=== PATIENT | male | born 1950 | race Caucasian/White ===

== ENCOUNTER 2018-05-27 18:39 | Emergency (ER) | payer MEDICARE ==
[2018-05-27 18:47] VITALS: TEMP 96.8
[2018-05-27] MEDS ORDERED: SODIUM CHLORIDE 0.9% 1,000 ML IV ONE (18:58)
--- NOTE | 2018-05-27 19:00 | ED ---
Syncope HPI - General Chief Complaint: Syncope Stated Complaint: Syncope Time Seen by Provider: 05/27/18 18:50 Source: patient, EMS Mode of arrival: EMS Limitations: no limitations - History of Present Illness Initial Comments: 67-year-old male presenting with multiple syncopal events. He states he was [place] drinking [place]day and was not hydrating when he had 3 episodes of syncope. He stated prior to passing out he would leg heaviness but denies any chest pain or shortness or breath. He states he is currently asymptomatic. He states he "hits his head all the time". He is not on blood thinners. He denies daily ETOH use or withdraw seizures. He is unable to quantify how many drinks he had today. Denies history of PE/DVT. - Related Data Previous Rx's Medication Instructions Recorded Nitroglycerin Sl Tabs [Nitrostat] 0.4 mg SUBLINGUAL Q5M PRN #25 tab 10/24/14 Allergies Allergy/AdvReac Type Severity Reaction Status Date / Time No Known Allergies Allergy Verified 05/27/18 18:41 Review of Systems ROS Statement: Those systems with pertinent positive or pertinent negative responses have been documented in the HPI. Review of Systems Constitutional: Denies fever, chills Eyes: Denies change in vision, Denies pain Ears, nose, mouth, throat: Denies headaches, Denies sore throat Cardiovascular: Denies chest pain. Denies palpitations Respiratory: Denies shortness of breath, Denies cough Gastrointestinal: Denies abdominal pain. Denies nausea, vomiting, diarrhea. Genitourinary: Denies hematuria, Denies infections Musculoskeletal: Denies pain, Denies swelling Integumentary: Denies rash Neurological: Denies headache, focal weakness, focal numbness. positive syncope. Psychiatric: Denies anxiety, Denies depression Hematologic/Lymphatic: Denies easy bleeding or bruising ROS Other: All systems not noted in ROS Statement are negative. Past Medical History Additional Past Medical History / Comment(s): atrial septal defect closure device History of Any Multi-Drug Resistant Organisms: None Reported Past Surgical History: Hernia Repair, Orthopedic Surgery Past Psychological History: No Psychological Hx Reported Smoking Status: Current every day smoker Past Alcohol Use History: Daily Past Drug Use History: None Reported General Exam - General Exam Comments Initial Comments: General: Awake, alert, No acute Distress HENT: Normocephalic. Atraumatic Eyes: PERRL. EOMI. No scleral icterus. No injected conjunctiva Neck: Full ROM Chest/Lungs: Clear to auscultation bilaterally. No wheezing, rhonchi, or rales Cardiac: Regular rate, rhythm. No murmurs or rubs. 2+ radial pulses bilaterally Abdomen/GI: [Soft, nontender, nondistended. No rebound, guarding, or rigidity. No abdominal bruit. Musculoskeletal: Full ROM Skin: Warm, dry, intact Neurologic: A/Ox3, no weakness, no sensory deficit, no abnormal gait, no coordination deficit. Finger to nose intact bilaterally. Psych: Agitated. Intoxicated. Limitations: no limitations Course Vital Signs 05/27/18 05/27/18 05/27/18 18:41 19:06 19:08 Temperature 96.8 F L Pulse Rate 85 75 Pulse Rate [ 74 [employer] ] Respiratory 20 18 Rate Blood Pressure 110/58 110/58 O2 Sat by Pulse 93 L 95 Oximetry 05/27/18 19:37 Temperature Pulse Rate 70 Pulse Rate [ [employer] ] Respiratory 16 Rate Blood Pressure 140/77 O2 Sat by Pulse 98 Oximetry EKG Findings - EKG Comments: EKG Findings:: EKG shows normal sinus rhythm at a rate of 83 bpm with left ventricular hypertrophy. IA interval is 184, QRS is 94, QT/QTC 388/455. LVH is new when compared to previous EKG. Medical Decision Making - Medical Decision Making 67-year-old male presenting with syncope. Initial exam the patient is awake, alert, no acute distress. VSS. EKG shows normal sinus rhythm at a rate of 83 bpm. On presentation the patient is asymptomatic. His laboratory workup is negative for acute process. CT head shows an old infarct is otherwise negative as well as his CT cervical spine. Discussed with the patient admission versus discharge. He is able to make his own decisions. He declined admission for syncopal workup when offered. He was told that he could suffer worsening condition or . He verbalized understanding. Patient was along the family at bedside states that they will have him stay at their house tonight. Patient is low risk per the [place] Syncope rule. [place] Syncope risk score is - 1, making him low risk. The patient denies any shortness of breath, chest pain, recent surgery, or active cancer. Low suspicion of PE. The patient has equal pulses, no abdominal pain or bruit, stable BP, hemoglobin WNL, no neurologic deficit, and a normal troponin. Low suspicion of AAA or dissection. No further emergent workup indicated. The patient was given return to ED instructions. They were instructed to follow up with their primary care provider. Stable for discharge at this time. - Lab Data Result diagrams: 05/27/18 18:51 18 18:51 Lab Results 05/27/18 05/27/18 05/27/18 Range/Units 18:51 18:51 18:51 WBC 8.4 (3.8-10.6) k/uL RBC 4.43 (4.30-5.90) m/uL Hgb 13.6 (13.0-17.5) gm/dL Hct 42.3 (39.0-53.0) % MCV 95.6 (80.0-100.0) fL MCH 30.6 (25.0-35.0) pg MCHC 32.0 (31.0-37.0) g/dL RDW 12.6 (11.5-15.5) % Plt Count 240 (150-450) k/uL Neutrophils % 63 % Lymphocytes % 28 % Monocytes % 5 % Eosinophils % 2 % Basophils % 0 % Neutrophils # 5.3 (1.3-7.7) k/uL Lymphocytes # 2.4 (1.0-4.8) k/uL Monocytes # 0.5 (0-1.0) k/uL Eosinophils # 0.1 (0-0.7) k/uL Basophils # 0.0 (0-0.2) k/uL Sodium 139 (137-145) mmol/L Potassium 3.7 (3.5-5.1) mmol/L Chloride 109 H (98-107) mmol/L Carbon Dioxide 20 L (22-30) mmol/L Anion Gap 10 mmol/L BUN 20 (9-20) mg/dL Creatinine 1.13 (0.66-1.25) mg/dL Est GFR (CKD-EPI)AfAm 77 (>60 ml/min/1.73 sqM) Est GFR (CKD-EPI)NonAf 66 (>60 ml/min/1.73 sqM) Glucose 105 H (74-99) mg/dL Calcium 8.4 (8.4-10.2) mg/dL Magnesium 1.9 (1.6-2.3) mg/dL Troponin I <0.012 (0.000-0.034) ng/mL Serum Alcohol <10 mg/dL Disposition Clinical Impression: Syncope Disposition: HOME SELF-CARE Condition: Good Instructions: Heat Exhaustion (ED), Syncope (ED) Is patient prescribed a controlled substance at d/c from ED?: No Referrals: None,Stated [Primary Care Provider] - 1-2 days Griffin Schofield MD [STAFF PHYSICIAN] - 1-2 days
[2018-05-27 19:27] LABS: Basophils % (A) 0 %; Eosinophils # (A) 0.1 k/uL (0-0.7); Eosinophils % (A) 2 %; HCT 42.3 % (39.0-53.0); HGB 13.6 gm/dL (13.0-17.5); Lymphocytes # (A) 2.4 k/uL (1.0-4.8); Lymphocytes % (A) 28 %; MCH 30.6 pg (25.0-35.0); MCV 95.6 fL (80.0-100.0); Mean Platelet Volume 6.5; Monocytes # (A) 0.5 k/uL (0-1.0); Monocytes % (A) 5 %; Neutrophils # (A) 5.3 k/uL (1.3-7.7); Neutrophils % (A) 63 %; Platelet Count 240 k/uL (150-450); RBC 4.43 m/uL (4.30-5.90); RDW 12.6 % (11.5-15.5); WBC 8.4 k/uL (3.8-10.6)
[2018-05-27 19:36] LABS: Alcohol <10 mg/dL; Anion Gap 10 mmol/L; Blood Urea Nitrogen 20 mg/dL (9-20); Calcium 8.4 mg/dL (8.4-10.2); Carbon Dioxide 20 mmol/L (22-30); Chloride 109 mmol/L (98-107); Glucose 105 mg/dL (74-99); Magnesium 1.9 mg/dL (1.6-2.3); Potassium 3.7 mmol/L (3.5-5.1); Sodium 139 mmol/L (137-145)
[2018-05-27 19:38] VITALS: BP 140/77; PULSE 70; RESP 16
--- NOTE | 2018-05-27 19:41 | CT ---
EXAMINATION TYPE: CT brain patrizia huitron DATE OF EXAM: 05/27/2018 COMPARISON: None HISTORY: syncope CT DLP: 1517 mGycm Automated exposure control for dose reduction was used. TECHNIQUE: CT scan of the head and cervical spine are performed without contrast. FINDINGS: There is a 5 x 3 cm area of hypodensity in the right temporal lobe consistent with old in farct. There is no mass effect nor midline shift. There is no sign of intracranial hemorrhage. The ca lvarium is intact. Cervical vertebra have normal alignment. Facet joints are intact. Disc spaces are fairly normal for a ge. Skull base is intact. There is no evidence of cervical spine fracture. 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 No acute intracranial abnormality. Minor spurring in the cervical spine. No fracture.
--- NOTE | 2018-05-27 19:50 | XR ---
EXAMINATION TYPE: XR chest 2V DATE OF EXAM: 05/27/2018 COMPARISON: 10/24/2014 HISTORY: Syncope TECHNIQUE: Frontal and lateral views of the chest are obtained. FINDINGS: Heart and mediastinum are normal. Lungs are clear. Diaphragm is normal. Bony thorax is int act. There are chest leads. IMPRESSION: No active cardiopulmonary disease. Normal heart. No change.
== END 2018-05-27 20:26 | disposition home or self-care (01) ==
LOC: EC 18:39
DX: R55 Syncope and collapse (principal); F10.129 Alcohol abuse with intoxication, unspecified; R45.1 Restlessness and agitation; F17.200 Nicotine dependence, unspecified, uncomplicated
CPT/HCPCS: 36415; 80048; 83735; 84484; 85025; 71046; 72125; 70450; 99285; 96360; G0480; 80320